=== PATIENT | male | born 1950 | race Caucasian/White ===

== ENCOUNTER 2017-01-13 13:27 | Emergency (ER) | payer MEDICARE, OTHER ==
[2014-12-08 13:19] VITALS: BMI 48.8
[~2017-01-13 13:27] MED LIST: ACETAMINOPHEN500 M1 PO; ALLERGY SHOT INJ; DEXILANT60 MG PO; GLUCOTROL 5 MG T5 MG PO; JANUVIA100 MG PO; LANTUS INSULIN10 ML INJ; LEXAPRO10 MG PO; LUNESTA3 MG PO; NEXIUM40 MG PO; NOVALOG INSULIN INJ; STOOL SOFTENER240 MG PO; SYNTHROID75 MCG PO; TERAZOSIN HCL2 MG PO; TIAZAC/CARDIZE120 MG PO; VASOTEC20 MG PO
== END 2017-01-13 16:05 | disposition home or self-care (01) ==
LOC: D.ER 13:27
DX: S86.811A Strain of other muscle(s) and tendon(s) at lower leg level, right leg, initial encounter (principal); X58.XXXA Exposure to other specified factors, initial encounter; Y93.89 Activity, other specified; Y92.89 Other specified places as the place of occurrence of the external cause; R20.8 Other disturbances of skin sensation; R53.1 Weakness

== ENCOUNTER → 2019-06-25 07:35 | Outpatient (CLI) | payer MEDICARE, OTHER ==
[2014-12-08 13:19] VITALS: BMI 48.8
== END | disposition home or self-care (01) ==
LOC: D.US 07:35
PROVIDERS: ATTEND Family Medicine
DX: M79.662 Pain in left lower leg (principal); M79.661 Pain in right lower leg